=== PATIENT | male | born 1955 | race Caucasian/White ===

== ENCOUNTER → 2017-01-16 | Outpatient (CLI) | payer OTHER | END | disposition home or self-care (01) | LOC: LABWHC1 12:20 | PROVIDERS: ATTEND Family Medicine | DX: R97.20 Elevated prostate specific antigen [PSA] (principal) | CPT/HCPCS: 36415; 84153; 84154 ==

== ENCOUNTER → 2017-05-27 | Outpatient (CLI) | payer OTHER ==
[2017-05-27 09:23] LABS: Basophils # (A) 0.1 k/uL (0-0.2); Basophils % (A) 1 %; CHCM 33.4; Eosinophils # (A) 0.1 k/uL (0-0.7); Eosinophils % (A) 2 %; HCT 47.2 % (39.0-53.0); HDW 2.68; HGB 15.7 gm/dL (13.0-17.5); Luc # (Auto) 0.11; Luc % (Auto) 2; Lymphocytes # (A) 1.5 k/uL (1.0-4.8); Lymphocytes % (A) 27 %; MCHC 33.3 g/dL (31.0-37.0); MCV 93.2 fL (80.0-100.0); Mean Platelet Volume 7.1; Monocytes # (A) 0.4 k/uL (0-1.0); Monocytes % (A) 7 %; Neutrophils # (A) 3.3 k/uL (1.3-7.7); Neutrophils % (A) 61 %; RBC 5.07 m/uL (4.30-5.90); RDW 13.1 % (11.5-15.5); WBC 5.4 k/uL (3.8-10.6); WBC (Perox) 5.33
[2017-05-27 09:45] LABS: ALT 41 U/L (21-72); AST 24 U/L (17-59); Alkaline Phosphatase 49 U/L (38-126); Anion Gap 9 mmol/L; Blood Urea Nitrogen 19 mg/dL (9-20); Calcium 9.8 mg/dL (8.4-10.2); Carbon Dioxide 30 mmol/L (22-30); Chloride 104 mmol/L (98-107); Cholesterol 131 mg/dL (<200); Glucose 90 mg/dL (74-99); HDL Cholesterol 42 mg/dL (40-60); Non-African American GFR(MDRD) >60 (>60 ml/min/1.73 sqM); Potassium 4.1 mmol/L (3.5-5.1); Sodium 143 mmol/L (137-145); Total Bilirubin 0.8 mg/dL (0.2-1.3); Total Protein 7.3 g/dL (6.3-8.2)
[2017-05-27 10:32] LABS: Hepatitis C Virus IgG Ab Negative (Negative); Hepatitis C Virus IgG Index 0.02
[2017-05-27 12:18] LABS: Vitamin B12 573 pg/mL (239-931)
[2017-05-27 13:52] LABS: Hemoglobin A1C 5.7 % (4.2-6.1)
== END | disposition home or self-care (01) ==
LOC: LABWHC1 09:00
PROVIDERS: ATTEND Family Medicine
DX: Z00.01 Encounter for general adult medical examination with abnormal findings (principal); I49.8 Other specified cardiac arrhythmias; E78.5 Hyperlipidemia, unspecified; E55.9 Vitamin D deficiency, unspecified; R73.9 Hyperglycemia, unspecified; Z13.9 Encounter for screening, unspecified
CPT/HCPCS: 36415; 80053; 80061; 82306; 82607; 82746; 83036; 83525; 83735; 83921; 84439; 84443; 84480; 85025; 86141; 86803; 87390

== ENCOUNTER → 2017-09-18 | Outpatient (CLI) | payer OTHER ==
--- NOTE | 2017-09-18 13:43 | US ---
EXAMINATION TYPE: US abdomen complete DATE OF EXAM: 09/18/2017 COMPARISON: 2016 CLINICAL HISTORY: K76.89 Diseases of liver. EXAM MEASUREMENTS: Liver Length: 14.8 cm Gallbladder Wall: 0.2 cm CBD: 0.2 cm Spleen: 11.2 cm Right Kidney: 10.5 x 4.6 x 4.4 cm Left Kidney: 10.9 x 5.0 x 5.5 cm Pancreas: Obscured by bowel gas Liver: stable largest liver cyst, multiple cysts left 1.0 x 1.1 x0.9 cm,2.1 x 1.8 x 2.3 cm, rt 1.0 x 0.8 x 0 .7 cm, rt lower pole 3.9 x 3.3 x 3.6 cm, rt mid 1.5 x 1.5 x 1.6 cm, rt medial 1.7 x 2.1 x 1.6 cm, Gallbladder: wnl Evidence for sonographic Rust's sign: No CBD: wnl Spleen: wnl Right Kidney: small cyst 0.8 x 0.7 x 1.1 cm Left Kidney: wnl Upper IVC: wnl Abd Aorta: wnl The liver is homogenous. Multiple hepatic cysts noted. The intrahepatic portion of the IVC and proxim al abdominal aorta are within normal limits. There is no evidence of cholelithiasis. Common bile du ct is unremarkable. The visualized portions of the pancreas are homogenous. The spleen is unremarka ble. Kidneys are symmetric and free of hydronephrosis. No Solid renal lesions are seen. IMPRESSION: 1. Simple hepatic cysts. 2. Simple right renal cyst.
== END | disposition home or self-care (01) ==
LOC: RADUSWWP 11:52
PROVIDERS: ATTEND Family Medicine
DX: K76.89 Other specified diseases of liver (principal); N28.1 Cyst of kidney, acquired
CPT/HCPCS: 76700

== ENCOUNTER → 2017-09-22 | Outpatient (CLI) | payer OTHER | END | disposition home or self-care (01) | LOC: LABWHC1 09:58 | PROVIDERS: ATTEND Urology | DX: R97.20 Elevated prostate specific antigen [PSA] (principal) | CPT/HCPCS: 36415; 84153 ==

== ENCOUNTER → 2018-06-06 | Outpatient (CLI) | payer OTHER ==
[2018-06-06 11:46] LABS: Basophils % (A) 1 %; Eosinophils # (A) 0.1 k/uL (0-0.7); Eosinophils % (A) 2 %; HCT 44.9 % (39.0-53.0); HGB 14.8 gm/dL (13.0-17.5); Lymphocytes # (A) 1.4 k/uL (1.0-4.8); Lymphocytes % (A) 27 %; MCH 29.4 pg (25.0-35.0); MCHC 33.1 g/dL (31.0-37.0); Mean Platelet Volume 7.8; Monocytes # (A) 0.4 k/uL (0-1.0); Monocytes % (A) 7 %; Neutrophils # (A) 3.2 k/uL (1.3-7.7); Neutrophils % (A) 62 %; Platelet Count 186 k/uL (150-450); RBC 5.04 m/uL (4.30-5.90); RDW 13.4 % (11.5-15.5); WBC 5.1 k/uL (3.8-10.6)
[2018-06-06 12:01] LABS: ALT 31 U/L (21-72); AST 20 U/L (17-59); Albumin 4.3 g/dL (3.5-5.0); Alkaline Phosphatase 39 U/L (38-126); Anion Gap 10 mmol/L; Blood Urea Nitrogen 23 mg/dL (9-20); Calcium 9.9 mg/dL (8.4-10.2); Carbon Dioxide 27 mmol/L (22-30); Chloride 108 mmol/L (98-107); Cholesterol 143 mg/dL (<200); Glucose 92 mg/dL (74-99); HDL Cholesterol 40 mg/dL (40-60); LDL Cholesterol,Calculated 76 mg/dL (0-99); Potassium 4.5 mmol/L (3.5-5.1); Sodium 145 mmol/L (137-145); Total Bilirubin 0.6 mg/dL (0.2-1.3); Total Protein 7.1 g/dL (6.3-8.2); Triglycerides 136 mg/dL (<150)
[2018-06-06 12:14] LABS: T4, Free (Free Thyroxine) 0.84 ng/dL (0.78-2.19)
[2018-06-06 16:32] LABS: Vitamin D 25 Hydroxy 26.7 ng/mL (30.0-100.0)
[2018-06-06 17:10] LABS: Hepatitis C IgG Antibody Non-Reactive (Non-Reactive)
[2018-06-06 17:51] LABS: Hemoglobin A1C 5.6 % (4.0-6.0)
[2018-06-06 20:34] LABS: HIV 1 AB Non-Reactive (Non-Reactive); HIV AB P24 Non-Reactive (Non-Reactive); HIV P24 AG Non-Reactive (Non-Reactive)
== END | disposition home or self-care (01) ==
LOC: LABWHC1 10:04
PROVIDERS: ATTEND Family Medicine
DX: Z00.01 Encounter for general adult medical examination with abnormal findings (principal); E78.5 Hyperlipidemia, unspecified; E55.9 Vitamin D deficiency, unspecified; R73.9 Hyperglycemia, unspecified; Z13.9 Encounter for screening, unspecified; I45.9 Conduction disorder, unspecified
CPT/HCPCS: 36415; 80053; 80061; 82306; 82607; 82746; 83036; 83735; 83921; 84439; 84443; 84480; 85025; 86141; 86803; 87390

== ENCOUNTER → 2021-05-25 | Outpatient (CLI) | payer OTHER ==
[2021-05-25 16:38] LABS: Basophils # (A) 0.03 X 10*3/uL (0.00-0.10); Basophils % (A) 0.6 %; Eosinophils # (A) 0.05 X 10*3/uL (0.04-0.35); HCT 44.4 % (39.6-50.0); HGB 14.5 g/dL (13.0-17.0); Lymphocytes # (A) 1.55 X 10*3/uL (0.90-5.00); Lymphocytes % (A) 31.8 %; MCH 29.8 pg (27.0-32.0); MCHC 32.7 g/dL (32.0-37.0); MCV 91.2 fL (80.0-97.0); Mean Platelet Volume 11.3 fL (9.5-12.2); Monocytes # (A) 0.51 X 10*3/uL (0.20-1.00); Monocytes % (A) 10.5 %; Neutrophils # (A) 2.72 X 10*3/uL (1.80-7.70); Neutrophils % (A) 55.9 %; Platelet Count 207 X 10*3/uL (140-440); RBC 4.87 X 10*6/uL (4.40-5.60); RDW 13.5 % (11.5-14.5); WBC 4.87 X 10*3/uL (4.50-10.00)
[2021-05-25 16:45] LABS: Hemoglobin A1C 5.7 % (4.0-6.0)
[2021-05-26 20:27] LABS: African American GFR (CKD) 105.7 (60.0-200.0); Albumin 4.5 g/dL (3.8-4.9); Albumin/Globulin Ratio 2.05 (1.60-3.17); Anion Gap 19.6 mmol/L (4.00-12.00); BUN/Creat Ratio 23.68 Ratio (12.00-20.00); Blood Urea Nitrogen 20.6 mg/dL (9.0-27.0); Calcium 9.9 mg/dL (8.7-10.3); Carbon Dioxide 21.9 mmol/L (21.6-31.8); Chol/HDL Ratio 2.95 Ratio; Globulin 2.2 g/dL (1.6-3.3); HDL Cholesterol 45.4 mg/dL (40.00-60.00); LDL Cholesterol,Calculated 66.2 mg/dL (0.0-131.0); Non-African American GFR(CKD) 91.2 (60.0-200.0); Potassium 4.5 mmol/L (3.5-5.5); Total Bilirubin 0.4 mg/dL (0.30-1.20); Total Protein 6.8 g/dL (6.2-8.2); VLDL Calculation 22.4 mg/dL (5.00-40.00)
[2021-05-27 07:22] LABS: Methylmalonic Acid 0.26 umol/L (<0.40)
== END | disposition home or self-care (01) ==
LOC: LABWHC1 07:48
PROVIDERS: ATTEND Family Medicine
DX: Z00.01 Encounter for general adult medical examination with abnormal findings (principal); Z12.5 Encounter for screening for malignant neoplasm of prostate; Z13.1 Encounter for screening for diabetes mellitus; D47.2 Monoclonal gammopathy; I48.0 Paroxysmal atrial fibrillation
CPT/HCPCS: 36415; 80053; 80061; 82610; 83036; 83735; 83921; 84153; 84443; 85025

== ENCOUNTER 2022-03-25 08:48 | Day surgery (SDC) | payer MEDICARE, OTHER ==
[2022-03-24 09:52] VITALS: BMI 28.7
[~2022-03-25 08:48] MED LIST: LIDOCAINE 1% (10MG/ML) FOR IV START INTRADERMA PRN
[2022-03-25] MEDS: LACTATED RINGERS 1,000 ML IV SCH ×2 (09:17→10:00)
[2022-03-25 09:37] VITALS: TEMP 97
[2022-03-25] MEDS ORDERED: PROPOFOL 10 MG/ML 20 ML VIAL IV ONE (10:01)
[2022-03-25] MEDS ORDERED: LIDOCAINE 2% INJ 20 MG/ML (2 ML VIAL) ONE (10:01)
--- NOTE | 2022-03-25 10:33 | P.PCN ---
Date of Procedure: 03/25/22 Procedure(s) Performed: Date of Procedure: 03/25/22 Procedure(s) Performed: Brief history: Patient is a pleasant 66-year-old white male scheduled for an elective upper endoscopy as well as colonoscopy as a part of evaluation of right upper quadrant abdominal pain for the last 2 years duration. Symptoms have been going on an intermittent basis. Has occasional heartburn. He also has some change in bowel habits. Procedure performed: Esophagogastroduodenoscopy with biopsy Colonoscopy with biopsy and snare polypectomy Preoperative diagnosis: Abdominal pain, heartburn and change in bowel habits Anesthesia: MAC Procedure: After informed consent was obtained from the patient was brought into the endoscopy unit and IV sedation was administered by anesthesia under continuous monitoring. Initially upper endoscopy was done. The Olympus GF 160 video endoscope was inserted inserted into the mouth and esophagus intubated without any difficulty and was gradually advanced into the stomach and duodenum and carefully examined. The bulb and second part of the duodenum appeared normal. The scope was then withdrawn into the stomach adequately insufflated with air and upon careful examination the antrum had mild gastritis and biopsies were done from this area. In the distal body of the stomach along the greater curvature there was a 2 cm patch of friable mucosa with some erythema noted and this was biopsied. Mucosa of the body, cardia and fundus appeared normal. The scope was then withdrawn into the esophagus. The GE junction was located at 40 cm to the incisors. It appeared regular with no erythema erosions or ulcerations. Rest of the esophagus appeared normal. Patient tolerated the procedure well. At this time the patient continued to remain sedation. Initial digital rectal examination was normal. Olympus CF 160 video colonoscope was then inserted into the rectum and gradually advanced to the cecum without any difficulty. Careful examination was performed as the scope was gradually being withdrawn. The prep was excellent. The cecum, 2 polyps measuring 3 mm and 5 mm removed by snare polypectomy. In the ascending colon there was a 3 mm polyp removed by cold biopsy and a 5 mm polyp that was removed by snare polypectomy. Rest of the asce nding colon, transverse colon, descending colon, sigmoid colon and rectum appeared normal. Scattered sigmoid diverticula cyst. Retroflexion was performed in the rectum and small internalwere noted. Patient tolerated the procedure well. Impression: 1. Upper endoscopy revealed mild antral gastritis and a small area of mucosal erythema in the distal body the stomach status post multiple biopsies 2. Colonoscopy revealed 3 mm and 5 mm cecal polyp status post polypectomy, 5 mm ascending colon polyp serous posterior polypectomy and a 3 mm ascending colon polyp status post cold biopsy. Moderate sigmoid diverticulosis and small internal hemorrhoids Recommendations: Findings of this examination were discussed with the patient as well as his family. He was advised to follow with the biopsy results. If the biopsy was adenoma he can have a repeat colonoscopy in 5 years. Additional CC's:
[2022-03-25 10:38] VITALS: PULSE 89; RESP 16
[2022-03-25 10:52] VITALS: BP 148/80
== END 2022-03-25 11:13 | disposition home or self-care (01) ==
LOC: ORWHC2ENDO 08:48
PROVIDERS: ATTEND Internal Medicine Gastroenterology
DX: K29.50 Unspecified chronic gastritis without bleeding (principal); D12.2 Benign neoplasm of ascending colon; K63.5 Polyp of colon; K57.30 Diverticulosis of large intestine without perforation or abscess without bleeding; K64.8 Other hemorrhoids; E78.5 Hyperlipidemia, unspecified; I10 Essential (primary) hypertension; I48.91 Unspecified atrial fibrillation; K21.9 Gastro-esophageal reflux disease without esophagitis; Z79.899 Other long term (current) drug therapy; Z79.82 Long term (current) use of aspirin; Z80.51 Family history of malignant neoplasm of kidney
CPT/HCPCS: 88305; 45380; 45385; 43239; J2704; J2001

== ENCOUNTER → 2022-05-26 | Outpatient (CLI) | payer MEDICARE, BC ==
[2022-05-26 18:52] LABS: Rheumatoid Factor, Qnt <10 IU/mL (0-15)
[2022-05-26 20:37] LABS: Cyclic Citrull Pep IgG Unit <0.5 U/mL; Cyclic Citrullinated Pep IgG NEGATIVE (NEGATIVE)
== END | disposition home or self-care (01) ==
LOC: LABWHC1 12:38
PROVIDERS: ATTEND Family Medicine
DX: M54.51 Vertebrogenic low back pain (principal); R10.11 Right upper quadrant pain; R97.20 Elevated prostate specific antigen [PSA]; R31.29 Other microscopic hematuria
CPT/HCPCS: 36415; 84153; 85652; 86140; 86200; 86235; 86431; 86618

== ENCOUNTER → 2023-10-18 | Outpatient (CLI) | payer MEDICARE, BC ==
--- NOTE | 2023-10-19 09:28 | US ---
EXAMINATION TYPE: US groin RT DATE OF EXAM: 10/18/2023 COMPARISON: NONE CLINICAL INDICATION: Male, 68 years old with history of R10.2 PELVIC AND PERINEAL PAIN; Hx right ingu inal hernia repair x 4-5 years ago. Patient states having pain that comes and goes. TECHNIQUE: Targeted ultrasound right inguinal region. FINDINGS: Flight Technician notes: Area of concern scanned. Mesh visualized. No abnormality seen. Valsal va performed. IMPRESSION: Provided images show some shadowing related to a prior mesh repair. The urban planning professor was unable to olga ntify any recurrent inguinal hernia or other sonographic abnormality in the right groin region.
== END | disposition home or self-care (01) ==
LOC: RADUSWWP 10-11 16:09
PROVIDERS: ATTEND Family Medicine
DX: R10.2 Pelvic and perineal pain (principal); Z98.890 Other specified postprocedural states